=== PATIENT | male | born 1925 | race Caucasian/White ===

== ENCOUNTER 2016-07-03 14:28 | Inpatient (IN) | payer MEDICARE, BC ==
[2016-07-03] MEDS ORDERED: ACETAMINOPHEN 500 MG TABLET PO ONE (14:43)
[2016-07-03] MEDS ORDERED: 0.9 % SODIUM CHLORIDE 1000ML 1,000 ML IV SCH (14:45)
[2016-07-03] MEDS ORDERED: PIPERACILLIN SODIUM/TAZOBACTAM 4.5 GM in 0.9 % SODIUM CHLORIDE 100ML 100 ML IVPB ONE (14:47)
[2016-07-03] MEDS ORDERED: LEVOFLOXACIN/D5W 750 MG/150 ML BAG IVPB ONE (14:47)
--- NOTE | 2016-07-03 14:48 | Emergency Department Record ---
History of Present Illness - General Chief Complaint: Difficulty Breathing Stated Complaint: [place] Time Seen by Provider: 07/03/16 14:38 Source: EMS Mode of Arrival: EMS Limitations: No limitations - History of Present Illness Initial Comments: 89 yo male presents from [facility] for evaluation of fever and cough symptoms this afternoon. Patient has a history of dementia and cannot provide history on examination. MD Complaint: Shortness of breath Onset/Timin -: Days(s) - Related Data Home Oxygen Therapy: No Home Medications Medication Instructions Recorded Confirmed Last Taken Donepezil HCl [Aricept] 10 mg PO DAILY 04/10/14 07/03/16 07/02/16 Memantine HCl [Namenda Xr] 28 mg PO DAILY 04/10/14 07/03/16 07/02/16 Risperidone [Risperdal] 0.25 mg PO QHS 04/10/14 07/03/16 07/02/16 Lisinopril 10 mg PO DAILY 07/03/16 07/03/16 07/03/16 Previous Rx's Medication Instructions Recorded Atorvastatin Calcium [Lipitor] 40 mg PO QHS #90 tab 04/11/14 Enalapril Maleate [Vasotec] 10 mg PO DAILY #30 tablet 04/18/14 Allergies Allergy/AdvReac Type Severity Reaction Status Date / Time No Known Drug Allergies Allergy Verified 04/10/14 11:26 Review of Systems ROS unobtainable: Other (Dementia) Past Medical History - SOCIAL HISTORY Smoking Status: Former smoker - RESPIRATORY Hx Respiratory Disorders: No - CARDIOVASCULAR Hx Cardio Disorders: Yes Hx Abnormal EKG: Yes (open heart surgery son unsure f reason) - NEURO Hx Neuro Disorders: Yes Hx Dementia: Yes - GI Hx GI Disorders: No - Hx Genitourinary Disorders: No - ENDOCRINE Hx Endocrine Disorders: No - MUSCULOSKELETAL Hx Musculoskeletal Disorders: No - PSYCH Hx Psych Problems: Yes Hx Anxiety: Yes - HEMATOLOGY/ONCOLOGY Hx Hematology/Oncology Disorders: No Family Medical History Hx Dementia: Mother, Brother/Sister Physical Exam - General General Appearance: Alert, Other (Patient is AOx1 on examination, at baseline per EMS) Limitations: No limitations - Head Head exam: negative: Atraumatic, Normocephalic, Normal inspection Head exam detail: negative: Abrasion, Contusion, Lam's sign, General tenderness, Hematoma, Laceration - Eye Eye exam: Normal appearance. negative: Conjunctival injection, Periorbital swelling, Periorbital tenderness, Scleral icterus - ENT Ear exam: negative: Auricular hematoma, Auricular trauma Nasal Exam: negative: Active bleeding, Discharge, Dried blood, Foreign body Mouth exam: negative: Drooling, Laceration, Muffled voice, Tongue elevation - Neck Neck exam: Normal inspection. negative: Meningismus, Tenderness - Respiratory Respiratory exam: Decreased breath sounds, Respiratory distress. negative: Rales, Rhonchi, Stridor - Cardiovascular Cardiovascular Exam: Regular rate, Normal rhythm, Normal heart sounds - GI/Abdominal GI/Abdominal exam: Soft. negative: Rebound, Rigid, Tenderness - Rectal Rectal exam: Deferred - exam: Deferred - Extremities Extremities exam: Normal inspection. negative: Pedal edema, Tenderness - Back Back exam: Denies: CVA tenderness (R), CVA tenderness (L) - Neurological Neurological exam: Alert. negative: Motor sensory deficit - Psychiatric Psychiatric exam: Normal affect, Normal mood - Skin Skin exam: Normal color. negative: Abrasion Type of lesion: negative: abrasion Course - Reevaluation(s) Reevaluation #1: 07/03/16 15:57 Labs reviewed, Hgb 11.2, BUN 31 (at baseline), Creatinine 1.6 (at baseline). Labs are otherwise grossly unremarkable for an acute process. CXR: Cardiomegaly, calcified pleural plaque, lungs are clear on examination. Reevaluation #2: 07/03/16 16:01 UA pending at this time, case was discussed with Dian KWOK, will accept admission at this time. Orders placed for treatment for HCAP. Medical Decision Making - Lab Data Result diagrams: 07/03/16 14:54 07/03/16 14:54 Disposition Disposition: Admit Clinical Impression: HCAP (healthcare-associated pneumonia) Alzheimer disease Qualifiers: Alzheimer's disease onset: unspecified onset Dementia behavioral disturbance: without behavioral disturbance Qualified Code(s): G30.9 - Alzheimer's disease, unspecified; F02.80 - Dementia in other diseases classified elsewhere without behavioral disturbance Fever Qualifiers: Fever type: unspecified Qualified Code(s): R50.9 - Fever, unspecified Disposition: Still a Patient at [facility] Decision to Admit: Admit from ER Decision to Admit Date: 05/05/17 Decision to Admit Time: 16:02 Condition: (2) Stable Forms: Patient Portal Access Time of Disposition: 16:02
[2016-07-03 15:03] LABS: HEMOGLOBIN 11.2 gm/dl (14.0-18.0); MEAN CELL VOLUME 93.5 fl (81-97); MEAN CORPUSCULAR HGB CONC 31.1 g/dl (32-36); MEAN PLATELET VOLUME 10.8 fl (7.4-10.4); PLATELET COUNT 201 K/uL (130-400); RED BLOOD COUNT 3.85 M/uL (4.40-5.70); RED CELL DISTRIBUTION WIDTH 13.2 % (11.5-14.5); WHITE BLOOD COUNT W/O DIFF 8.6 K/uL (4.2-12.2)
[2016-07-03 15:38] LABS: LACTIC ACID 1.1 mmol/L (0.7-2.1)
[2016-07-03 15:40] LABS: ALB/GLOB RATIO 1.2 (1.1-1.8); ALBUMIN 3.5 gm/dL (3.5-5.0); BILIRUBIN,TOTAL 0.4 mg/dL (0.2-1.3); CREATININE 1.6 mg/dL (0.66-1.25); TOTAL PROTEIN 6.4 gm/dL (6.3-8.2)
[2016-07-03 16:18] LABS: URINE APPEARANCE CLEAR; URINE BILIRUBIN NEGATIVE (NEGATIVE); URINE BLOOD SMALL (NEGATIVE); URINE COLOR YELLOW; URINE GLUCOSE (UA) NEGATIVE (NEGATIVE); URINE KETONE NEGATIVE (NEGATIVE); URINE LEUKOCYTE ESTERASE NEGATIVE (NEGATIVE); URINE NITRITE NEGATIVE (NEGATIVE); URINE UROBILINOGEN 0.2 E.U./dL (0.20 - 1.00)
[2016-07-03 16:27] LABS: URINE EPITHELIAL CELLS NONE SEEN (FEW); URINE WBC NONE SEEN (0-2/hpf)
[2016-07-03 16:28] LABS: URINE BACTERIA NONE SEEN
[2016-07-03] MEDS ORDERED: PIPERACILLIN SODIUM/TAZOBACTAM 4.5 GM in 0.9 % SODIUM CHLORIDE 100ML 100 ML IVPB SCH (16:51)
[2016-07-03] MEDS ORDERED: 0.9 % SODIUM CHLORIDE 1000ML 1,000 ML IV PRN (16:51)
[2016-07-03] MEDS ORDERED: ACETAMINOPHEN 500 MG TABLET PO PRN (16:51)
[2016-07-03] MEDS: PIPERACILLIN SODIUM/TAZOBACTAM 3.375 GM in 0.9 % SODIUM CHLORIDE 100ML 100 ML IVPB SCH (21:09)
[2016-07-03] MEDS: ATORVASTATIN 20 MG TABLET PO SCH (21:41)
[2016-07-03] MEDS: RISPERIDONE 0.25 MG TABLET PO SCH (21:42)
[2016-07-04] MEDS: PIPERACILLIN SODIUM/TAZOBACTAM 3.375 GM in 0.9 % SODIUM CHLORIDE 100ML 100 ML IVPB SCH ×4 (04:19→22:38)
[2016-07-04 06:28] LABS: BASO % 0.2 % (0-6); EOS % 0.7 % (0-6); GRAN % 77.8 % (47-80); HEMATOCRIT 30.6 % (42.0-52.0); HEMOGLOBIN 9.5 gm/dl (14.0-18.0); MEAN CELL VOLUME 93.9 fl (81-97); MEAN CORPUSCULAR HEMOGLOBIN 29.1 pg (27-33); MEAN PLATELET VOLUME 10.8 fl (7.4-10.4); MONO % 12.3 % (0-9); PLATELET COUNT 165 K/uL (130-400); RED BLOOD COUNT 3.26 M/uL (4.40-5.70); RED CELL DISTRIBUTION WIDTH 13.4 % (11.5-14.5); WHITE BLOOD COUNT W/O DIFF 6.1 K/uL (4.2-12.2)
[2016-07-04 07:08] LABS: ALB/GLOB RATIO 1.1 (1.1-1.8); ALBUMIN 2.9 gm/dL (3.5-5.0); ANION GAP 9.9 (7-16); BILIRUBIN,TOTAL 0.37 mg/dL (0.2-1.3); CARBON DIOXIDE 22.1 mmol/L (22-30); CREATININE 1.7 mg/dL (0.66-1.25); TOTAL PROTEIN 5.6 gm/dL (6.3-8.2)
[2016-07-04] MEDS: MEMANTINE HCL 10 MG TABLET PO SCH ×2 (08:59→22:40)
[2016-07-04] MEDS: DONEPEZIL HCL 5 MG TABLET PO SCH (08:59)
[2016-07-04] MEDS: ENALAPRIL 5 MG TABLET PO SCH (09:00)
[2016-07-04] MEDS ORDERED: LISINOPRIL 10 MG TABLET PO SCH (10:00)
[2016-07-04] MEDS ORDERED: LEVOFLOXACIN/D5W 750 MG in DEXTROSE 1 BAG IVPB SCH (10:00)
[2016-07-04] MEDS ORDERED: ZINC OXIDE 28.35 GM TUBE TOP PRN (10:52)
[2016-07-04 15:37] LABS: INFLUENZA A NEGATIVE (NEGATIVE); INFLUENZA B NEGATIVE (NEGATIVE)
--- NOTE | 2016-07-04 16:58 | History & Physical ---
History of Present Illness - Date of Service Date of Service for History & Physical: 07/04/16 - History of Present Illness Admitting Diagnosis: HCAP. Fever. Dementia History of Present Illness: 89yo male with CC of cough and fever. Brought here from [facility] memory unit. He has a history of dementia, CAD with 2 vessel bypass, carotid artery stenosis, anxiety. Patient was brought here by EMS from [facility] assisted living facility [facility] for a 2 days history of cough and weakness. No family members present to give further information at that time. While in the ED, patient was noted to be febrile with temp of 102. He had cbc which showed a normal wbc count and stable anemia with hgb at 11.2 (similar to previous visits). Oxygen saturation was 91% on room air improved to 98% with 2L. His CXR showed significant cardiomegaly compared to previous study done in 2013. Did not show evidence of an infiltrate at that time. UA was negative for infection. CMP showed moderate renal insufficiency similar to previous visits and was otherwise unremarkable. blood cultures obtained. patient was started on levaquin and zosyn for possible early nosocomial pneumonia and admitted for further monitoring. 07/04/16- Patient is alert and sitting up in bed at time of exam. He knows his name but is not oriented to place or time. He is overall pleasant and cooperative but states "I don't know" when asked why he was brought in and if he has been having any cough. no family or caretakers at bedside today. Nursing reports that he requires 1 person assistance for ambulation to the bathroom. Noted wet sounding cough frequently throughout exam. Patient ate about 50% of both his breakfast and lunch. spoke with patient's niece Monty on the phone. She states her uncle lives with his at [facility] in the memory unit. Says his dementia has really progressed over the past year. She believes that he usually requires assistance with ADL' s. says he has become agitated in the past when from his and would really like to get him back to [facility] as soon as we think he is ready to go. She says [facility] told her he had been having some cough and was a little weaker than normal for the past 2 days but no increased confusion or agitation. pcp: [facility] Travel Screening - Travel/Exposure Within Last 30 Days Have you traveled within the last 30 days?: No - Travel/Exposure Within Last Year Have you traveled outside the [place] in the last year?: No - Additonal Travel Details Have you been exposed to anyone with a communicable illness?: No - Travel Symptoms Symptom Screening: None Review of Systems ROS unobtainable: Due to mental status Past Medical History - SOCIAL HISTORY Smoking Status: Former smoker Alcohol Use: None Drug Use: None - RESPIRATORY Hx Respiratory Disorders: No - CARDIOVASCULAR Hx Cardio Disorders: Yes Hx Abnormal EKG: Yes (open heart surgery son unsure f reason) - NEURO Hx Neuro Disorders: Yes Hx Dementia: Yes - GI Hx GI Disorders: No - Hx Genitourinary Disorders: No - ENDOCRINE Hx Endocrine Disorders: No - MUSCULOSKELETAL Hx Musculoskeletal Disorders: No - PSYCH Hx Psych Problems: Yes Hx Anxiety: Yes Comment:: dementia - HEMATOLOGY/ONCOLOGY Hx Hematology/Oncology Disorders: No Family Medical History Any Significant Family History?: Yes Hx Dementia: Mother, Brother/Sister H&P Meds/Allergies - Allergies Allergies: Allergies Allergy/AdvReac Type Severity Reaction Status Date / Time No Known Drug Allergies Allergy Verified 04/10/14 11:26 - Home Medications Home Medications Medication Instructions Recorded Confirmed Last Taken Donepezil HCl [Aricept] 10 mg PO DAILY 04/10/14 07/03/16 07/02/16 Memantine HCl [Namenda Xr] 28 mg PO DAILY 04/10/14 07/03/16 07/02/16 Risperidone [Risperdal] 0.25 mg PO QHS 04/10/14 07/03/16 07/02/16 Lisinopril 10 mg PO DAILY 07/03/16 07/03/16 07/03/16 Previous Rx's Medication Instructions Recorded Atorvastatin Calcium [Lipitor] 40 mg PO QHS #90 tab 04/11/14 Enalapril Maleate [Vasotec] 10 mg PO DAILY #30 tablet 04/18/14 - Active Medications Active Medications: Current Medications Acetaminophen (Tylenol 500mg Tab) 1,000 mg PO Q6H PRN PRN Reason: PAIN/TEMP Last Admin: 07/04/16 00:17 Dose: 1,000 mg Atorvastatin Calcium (Lipitor) 40 mg PO QHS [facility] Last Admin: 07/03/16 21:41 Dose: 40 mg Donepezil HCl (Aricept) 10 mg PO DAILY [facility] Last Admin: 07/04/16 08:59 Dose: 10 mg Enalapril Maleate (Vasotec) 10 mg PO DAILY [facility] Last Admin: 07/04/16 09:00 Dose: 10 mg Sodium Chloride () 1,000 mls @ 125 mls/hr IV .Q8H PRN PRN Reason: LARGE VOLUME IV Last Admin: 07/03/16 18:06 Dose: 125 mls/hr Levofloxacin/Dextrose (Levaquin 750mg Ivpb) 750 mg in 150 mls @ 125 mls/hr IVPB Q48H [facility] Stop: 07/10/16 14:01 Piperacillin Sod/Tazobactam (Sod 3.375 gm/ Sodium Chloride) 100 mls @ 33.333 mls/hr IVPB Q6H [facility] Last Admin: 07/04/16 16:44 Dose: 33.333 mls/hr Memantine (Namenda) 10 mg PO BID [facility] Last Admin: 07/04/16 08:59 Dose: 10 mg Risperidone (Risperdal) 0.25 mg PO QHS [facility] Last Admin: 07/03/16 21:42 Dose: 0.25 mg Zinc Oxide (Desitin) 28.35 gm TOP ASDIR PRN PRN Reason: RASH Physical Exam - Vital Signs Vital Signs: Vital Signs - Last 24 Hrs Temp Pulse Resp BP Pulse Ox 07/04/16 12:00 98.8 F 72 18 139/86 94 L 07/04/16 09:00 86 14 07/04/16 07:12 99.1 F 72 18 139/85 93 L 07/04/16 04:00 98.8 F 77 18 145/68 96 07/04/16 00:00 100.9 F H 83 20 163/69 93 L 07/03/16 21:00 80 12 07/03/16 20:00 100.0 F H 79 18 118/60 94 L 07/03/16 17:24 24 - General General Appearance: Alert, Cooperative, No acute distress, Other (Patient is AOx1 on examination) Limitations: No limitations - Head Head exam: negative: Atraumatic, Normocephalic, Normal inspection Head exam detail: negative: Abrasion, Contusion, Lam's sign, General tenderness, Hematoma, Laceration - Eye Eye exam: Normal appearance. negative: Conjunctival injection, Periorbital swelling, Periorbital tenderness, Scleral icterus - ENT Ear exam: negative: Auricular hematoma, Auricular trauma Nasal Exam: negative: Active bleeding, Discharge, Dried blood, Foreign body Mouth exam: negative: Drooling, Laceration, Muffled voice, Tongue elevation - Neck Neck exam: Normal inspection. negative: Meningismus, Tenderness - Respiratory Respiratory exam: Rales (crackles in bilateral bases). negative: Rhonchi, Stridor - Cardiovascular Cardiovascular Exam: Regular rate, Normal rhythm, Normal heart sounds - GI/Abdominal GI/Abdominal exam: Soft. negative: Rebound, Rigid, Tenderness - Rectal Rectal exam: Deferred - exam: Deferred - Extremities Extremities exam: Normal inspection. negative: Pedal edema, Tenderness - Back Back exam: Denies: CVA tenderness (R), CVA tenderness (L) - Neurological Neurological exam: Alert. negative: Motor sensory deficit - Psychiatric Psychiatric exam: Normal affect, Normal mood - Skin Skin exam: Normal color. negative: Abrasion Type of lesion: negative: abrasion Results - Labs Result Diagrams: 07/04/16 05:28 07/04/16 05:28 Labs Last 24 Hours: Laboratory Results - last 24 hr 07/04/16 07/04/16 07/04/16 05:28 05:28 15:10 WBC 6.1 RBC 3.26 L Hgb 9.5 L Hct 30.6 L MCV 93.9 MCH 29.1 MCHC 31.0 L RDW 13.4 Plt Count 165 MPV 10.8 H Gran % 77.8 Lymphocytes % 9.0 L Monocytes % 12.3 H Eosinophils % 0.7 Basophils % 0.2 Sodium 139 Potassium 4.2 Chloride 107 Carbon Dioxide 22.1 Anion Gap 9.9 BUN 32 H Creatinine 1.7 H Estimated GFR 41 Random Glucose 87 Calcium 8.2 L Total Bilirubin 0.37 AST 33 ALT 28 Alkaline Phosphatase 81 Total Protein 5.6 L Albumin 2.9 L Globulin 2.7 Albumin/Globulin Ratio 1.1 Influenza Type A Ag Negative Influenza Type B Ag Negative - Imaging and Cardiology Chest x-ray Status: Report reviewed (cardiomegaly) VTE H&P Assessment - Risk for VTE Risk for VTE: Yes Risk Level: High Risk Assessment Date: 07/04/16 Risk Assessment Time: 17:26 VTE Orders Placed or Will Be Placed: Yes Plan - Inpatient Certification Inpatient Certification: Admit to inpatient care: Based on my medical assessment, after consideration of patient's risk factors (age, co-morbidities and patient presenting symptoms and acuity), I expect that this patient will remain in the hospital greater than or equal to two midnights and that the services needed warrant inpatient care because: Patient Risk Factors: [age, fever, dementia, weakness] Estimated length of stay: [48-96H] The patient may reasonably be expected to be discharged or transferred to a hospital within 96 hours after admission to [facility]. Services needed: [IV antibiotics, ] Post hospital care (if known): [] I certify that my determination is in accordance with my understanding of Medicare requirements for reasonable and necessary inpatient services. 07/04/16 17:26 - Detailed Diagnosis and Plan (1) Fever Current Visit: Yes Status: Acute Qualifiers: Fever type: unspecified Qualified Code(s): R50.9 - Fever, unspecified Base Code: R50.9 - FEVER, UNSPECIFIED Comment: 07/03/16- improved following administration of IV antibiotics. Tmax of 102. WBc count wnl. Blood cultures pending. UA negative for infection. CXR showed cardiomegaly but no acute infiltrates. MLC is infection with h/o of coughing past 2 days. cough is wet sounding but not productive of sputum. -RSV and influenza panel ordered to eval for viral causes -continue empiric treatment for possible early nosocomial pneumonia with levaquin and zosyn renally dosed -continue vitals q8H -repeat labs qam (2) Cough Current Visit: Yes Status: Acute Base Code: R05 - COUGH Comment: 07/03/16- CXR showed cardiomegaly increased since 2013. patient has bibasilar crackles on exam. no pedal edema. possibly infectious vs fluid overload? oxygen saturation remains stable around 94-95% on room air. -will continue IV antibiotics but will consider trial of lasix if no improvement. prefer to avoid diuretics if possible with stage 3 ckd. -rsv and flu panel ordered (3) DNR (do not resuscitate) Current Visit: Yes Status: Acute Base Code: Z66 - DO NOT RESUSCITATE Comment: 07/03/16- patient is dnr (4) DVT prophylaxis Current Visit: Yes Status: Acute Base Code: [id number] - Comment: 07/03/16- patient is high risk for DVT with age and restricted mobility -lovenox 30mg sq daily for renal function
[2016-07-04] MEDS ORDERED: LORAZEPAM 2 MG/ML VIAL IV PRN (17:48)
[2016-07-04] MEDS: RISPERIDONE 0.25 MG TABLET PO SCH (22:39)
[2016-07-04] MEDS: ATORVASTATIN 20 MG TABLET PO SCH (22:40)
[2016-07-05] MEDS: PIPERACILLIN SODIUM/TAZOBACTAM 3.375 GM in 0.9 % SODIUM CHLORIDE 100ML 100 ML IVPB SCH ×2 (04:14→10:23)
[2016-07-05 06:45] LABS: ALBUMIN 2.8 gm/dL (3.5-5.0); ANION GAP 6.3 (7-16); BILIRUBIN,TOTAL 0.34 mg/dL (0.2-1.3); CARBON DIOXIDE 23.7 mmol/L (22-30); CREATININE 1.7 mg/dL (0.66-1.25); TOTAL PROTEIN 5.7 gm/dL (6.3-8.2)
[2016-07-05 06:57] LABS: HEMATOCRIT 29.6 % (42.0-52.0); MEAN CELL VOLUME 95.2 fl (81-97); MEAN CORPUSCULAR HEMOGLOBIN 28.9 pg (27-33); MEAN CORPUSCULAR HGB CONC 30.4 g/dl (32-36); RED BLOOD COUNT 3.11 M/uL (4.40-5.70); WHITE BLOOD COUNT W/O DIFF 4.6 K/uL (4.2-12.2)
[2016-07-05 06:58] LABS: HYPOCHROMIA 1+; MEAN PLATELET VOLUME 10.7 fl (7.4-10.4); PLATELET COUNT 151 K/uL (130-400); PLATELET ESTIMATE NORMAL (NORMAL); RED CELL DISTRIBUTION WIDTH 13.6 % (11.5-14.5)
--- NOTE | 2016-07-05 09:25 | Physician Progress Note ---
Subjective - Date Date of Physician Progress Note: 07/05/16 - Subjective Subjective Comment: Patient is resting comfortably in his chair eating lunch. His son is at bedside. Says he was given an update from [facility] that they had brought him over to [facility] ED for cough and fever. patient's son states he hasn't heard his dad cough much since he's been here. Says he seems to be at baseline. Son is very worried about getting him back to [facility] [place] because Ayo's also lives at [facility] in the memory unit and gets agitated when they are . Objective - Vital Signs Vital Signs: Vital Signs - Last 24 Hrs Temp Pulse Resp BP Pulse Ox 07/05/16 08:00 98.8 F 74 18 167/79 93 L 07/05/16 00:00 98.8 F 62 18 158/74 94 L 07/04/16 20:13 12 07/04/16 20:00 99.2 F 98 H 18 182/78 95 07/04/16 12:00 98.8 F 72 18 139/86 94 L - General General Appearance: Alert, Cooperative, No acute distress, Other (Patient is AOx1 on examination) Limitations: No limitations - Head Head exam: negative: Atraumatic, Normocephalic, Normal inspection Head exam detail: negative: Abrasion, Contusion, Lam's sign, General tenderness, Hematoma, Laceration - Eye Eye exam: Normal appearance. negative: Conjunctival injection, Periorbital swelling, Periorbital tenderness, Scleral icterus - ENT Ear exam: negative: Auricular hematoma, Auricular trauma Nasal Exam: negative: Active bleeding, Discharge, Dried blood, Foreign body Mouth exam: negative: Drooling, Laceration, Muffled voice, Tongue elevation - Neck Neck exam: Normal inspection. negative: Meningismus, Tenderness - Respiratory Respiratory exam: Rales (crackles in bilateral bases). negative: Rhonchi, Stridor - Cardiovascular Cardiovascular Exam: Regular rate, Normal rhythm, Normal heart sounds - GI/Abdominal GI/Abdominal exam: Soft. negative: Rebound, Rigid, Tenderness - Rectal Rectal exam: Deferred - exam: Deferred - Extremities Extremities exam: Normal inspection. negative: Pedal edema, Tenderness - Back Back exam: Denies: CVA tenderness (R), CVA tenderness (L) - Neurological Neurological exam: Alert. negative: Motor sensory deficit - Psychiatric Psychiatric exam: Normal affect, Normal mood - Skin Skin exam: Normal color. negative: Abrasion Type of lesion: negative: abrasion Assessment and Plan - Assessment and Plan (1) Fever Current Visit: Yes Status: Acute Qualifiers: Fever type: unspecified Qualified Code(s): R50.9 - Fever, unspecified Base Code: R50.9 - FEVER, UNSPECIFIED Comment: 07/05/16- resolved following administration of IV antibiotics. Tmax of 102 while in ED and has been afebrile sincec. WBc count remains wnl. Blood cultures pending. UA negative for infection. CXR showed cardiomegaly but no acute infiltrates. MLC is infection. Oxygen saturation remains 96% on room air and no increased work of breathing. -RSV and influenza panel ordered to eval for viral causes. rapid flu negative. -continue empiric treatment for possible early nosocomial pneumonia with levaquin and zosyn renally dosed -order BNP with cardiomegaly and h/o CAD for possible new onset CHF. Will get echo if elevated and do trial of low dose lasix -continue vitals q8H -repeat labs qam (2) Cough Current Visit: Yes Status: Acute Base Code: R05 - COUGH Comment: 07/05/16- CXR showed cardiomegaly increased since 2012. patient has bibasilar crackles on exam. no pedal edema. possibly infectious vs fluid overload? oxygen saturation remains stable around 94-95% on room air. -will continue IV antibiotics but will consider trial of lasix if no improvement. prefer to avoid diuretics if possible with stage 3 ckd. -rsv and flu panel ordered (3) DNR (do not resuscitate) Current Visit: Yes Status: Acute Base Code: Z66 - DO NOT RESUSCITATE Comment: 07/05/16- patient is dnr (4) DVT prophylaxis Current Visit: Yes Status: Acute Base Code: [id number] - Comment: 07/05/16- patient is high risk for DVT with age and restricted mobility -lovenox 30mg sq daily for renal function Results - Labs Result Diagrams: 07/05/16 05:50 07/05/16 05:40 Labs Last 24 Hours: Laboratory Results - last 24 hr 07/04/16 07/05/16 07/05/16 15:10 05:40 05:50 WBC 4.6 RBC 3.11 L Hgb 9.0 L Hct 29.6 L MCV 95.2 MCH 28.9 MCHC 30.4 L RDW 13.6 Plt Count 151 MPV 10.7 H Neutrophils % Lymphocytes % Monocytes % Eosinophils % Not Reportable Basophils % Not Reportable Platelet Estimate Hypochromasia Sodium 140 Potassium 4.0 Chloride 110 H Carbon Dioxide 23.7 Anion Gap 6.3 L BUN 30 H Creatinine 1.7 H Estimated GFR 41 Random Glucose 85 Calcium 8.1 L Total Bilirubin 0.34 AST 33 ALT 30 Alkaline Phosphatase 69 Total Protein 5.7 L Albumin 2.8 L Globulin 2.9 Albumin/Globulin Ratio 1.0 L Influenza Type A Ag Negative Influenza Type B Ag Negative 07/05/16 05:50 WBC 4.6 RBC 3.11 L Hgb 9.0 L Hct 29.6 L MCV 95.2 MCH 28.9 MCHC 30.4 L RDW 13.6 Plt Count 151 MPV 10.7 H Neutrophils % 68.0 Lymphocytes % 18.0 Monocytes % 12.0 H Eosinophils % 2.0 Basophils % Not Reportable Platelet Estimate Normal Hypochromasia 1+ Sodium Potassium Chloride Carbon Dioxide Anion Gap BUN Creatinine Estimated GFR Random Glucose Calcium Total Bilirubin AST ALT Alkaline Phosphatase Total Protein Albumin Globulin Albumin/Globulin Ratio Influenza Type A Ag Influenza Type B Ag DVT/PE Assessment - Risk for VTE Risk for VTE: No Risk Level: High Risk Assessment Date: 07/04/16 Risk Assessment Time: 17:26 VTE Orders Placed or Will Be Placed: Yes - Active Medicaitons Current Medications: Current Medications Acetaminophen (Tylenol 500mg Tab) 1,000 mg PO Q6H PRN PRN Reason: PAIN/TEMP Last Admin: 07/04/16 00:17 Dose: 1,000 mg Atorvastatin Calcium (Lipitor) 40 mg PO QHS [facility] Last Admin: 07/04/16 22:40 Dose: 40 mg Donepezil HCl (Aricept) 10 mg PO DAILY [facility] Last Admin: 07/04/16 08:59 Dose: 10 mg Enalapril Maleate (Vasotec) 10 mg PO DAILY [facility] Last Admin: 07/04/16 09:00 Dose: 10 mg Enoxaparin Sodium (Lovenox) 30 mg SQ DAILY [facility] Levofloxacin/Dextrose (Levaquin 750mg Ivpb) 750 mg in 150 mls @ 125 mls/hr IVPB Q48H [facility] Stop: 07/10/16 14:01 Piperacillin Sod/Tazobactam (Sod 3.375 gm/ Sodium Chloride) 100 mls @ 33.333 mls/hr IVPB Q6H [facility] Last Admin: 07/05/16 04:14 Dose: 33.333 mls/hr Lorazepam (Ativan) 1 mg IV Q8H PRN PRN Reason: Agitation Memantine (Namenda) 10 mg PO BID [facility] Last Admin: 07/04/16 22:40 Dose: 10 mg Risperidone (Risperdal) 0.25 mg PO QHS [facility] Last Admin: 07/04/16 22:39 Dose: 0.25 mg Zinc Oxide (Desitin) 28.35 gm TOP ASDIR PRN PRN Reason: RASH AMI Plan - Labs Result Diagrams: 07/05/16 05:50 07/05/16 05:40
[2016-07-05] MEDS: ENALAPRIL 5 MG TABLET PO SCH ×2 (10:26→22:47)
[2016-07-05] MEDS: MEMANTINE HCL 10 MG TABLET PO SCH ×2 (10:26→22:09)
[2016-07-05] MEDS: DONEPEZIL HCL 5 MG TABLET PO SCH (10:26)
[2016-07-05] MEDS: ENOXAPARIN 30 MG/0.3 ML SYR SQ SCH (10:26)
[2016-07-05] MEDS ORDERED: LEVOFLOXACIN/D5W 750 MG/150 ML BAG IVPB SCH (14:00)
[2016-07-05] MEDS: LEVOFLOXACIN 500 MG TABLET PO SCH (20:00)
[2016-07-05] MEDS ORDERED: FUROSEMIDE 20 MG TABLET PO ONE (21:56)
[2016-07-05] MEDS: ATORVASTATIN 20 MG TABLET PO SCH (22:09)
[2016-07-05] MEDS: RISPERIDONE 0.25 MG TABLET PO SCH (22:10)
[2016-07-06 06:41] LABS: BASO % 0.1 % (0-6); EOS % 0.9 % (0-6); GRAN % 73.8 % (47-80); HEMATOCRIT 31.8 % (42.0-52.0); HEMOGLOBIN 9.6 gm/dl (14.0-18.0); MEAN CELL VOLUME 95.5 fl (81-97); MEAN CORPUSCULAR HEMOGLOBIN 28.8 pg (27-33); MEAN CORPUSCULAR HGB CONC 30.2 g/dl (32-36); MEAN PLATELET VOLUME 10.7 fl (7.4-10.4); MONO % 9.2 % (0-9); PLATELET COUNT 157 K/uL (130-400); RED BLOOD COUNT 3.33 M/uL (4.40-5.70); RED CELL DISTRIBUTION WIDTH 13.7 % (11.5-14.5); WHITE BLOOD COUNT W/O DIFF 7.7 K/uL (4.2-12.2)
[2016-07-06 06:54] LABS: ALB/GLOB RATIO 0.9 (1.1-1.8); ALBUMIN 2.9 gm/dL (3.5-5.0); ANION GAP 6.4 (7-16); BILIRUBIN,TOTAL 0.31 mg/dL (0.2-1.3); CARBON DIOXIDE 25.6 mmol/L (22-30); CREATININE 1.5 mg/dL (0.66-1.25)
--- NOTE | 2016-07-06 07:17 | RADIOLOGY REPORT ---
EXAM: CHEST, TWO VIEWS HISTORY: DIFFICULTY BREATHING. TECHNIQUE: Frontal and lateral views of the chest were obtained. Comparison: 05/31/14 chest. FINDINGS: Stable cardiomegaly and post surgical change. Calcified pleural plaque formation bilaterally. Surgical clips in the neck regions. Osteopenia. The lungs are clear. No pneumothorax. IMPRESSION: STABLE CARDIOMEGALY. POST SURGICAL CHANGES. CALCIFIED PLEURAL PLAQUE FORMATION. JOB NUMBER: [id number] MTDD
--- NOTE | 2016-07-06 07:20 | RADIOLOGY REPORT ---
EXAM: CHEST, TWO VIEWS HISTORY: COUGH AND FEVER. TECHNIQUE: PA and lateral upright views of the chest were obtained. Comparison: 07/03/16 and 05/31/14. FINDINGS: The patient is status post median sternotomy. The heart is normal in size. There is calcification of the aorta. The mediastinum and pulmonary vasculature are normal. Calcified pleural plaques are present within both hemithoraces and are not significantly different. There are no acute infiltrates or effusions. There is no pneumothorax. The bones appear intact. IMPRESSION: 1. NO ACUTE CHEST PATHOLOGY. 2. STABLE POST SURGICAL CHANGES AND CALCIFIED PLEURAL PLAQUES WITHIN BOTH HEMITHORACES. JOB NUMBER: [id number] MTDD
--- NOTE | 2016-07-06 08:14 | Discharge Summary ---
Providers Discharge Summary Date: 07/06/16 Date of admission: 07/03/16 16:49 Expected Date of Discharge: 07/06/16 Attending physician: MARIA DE JESUS GLYNN Primary care physician: Samy Mcneil Physical Exam - Vital Signs Vital Signs: Vital Signs - Last 24 Hrs Temp Pulse Resp BP BP Pulse Ox 07/06/16 04:09 98.5 F 79 20 150/73 95 07/06/16 00:11 98.5 F 74 20 143/70 95 07/05/16 20:51 98.5 F 79 18 190/82 199/83 96 07/05/16 18:34 98.2 F 76 18 189/83 96 07/05/16 16:00 98.2 F 72 18 201/80 96 07/05/16 12:00 98.6 F 57 L 16 187/86 96 07/05/16 09:00 74 18 - General General Appearance: Alert, Cooperative, No acute distress, Other (Patient is AOx1 on examination) Limitations: No limitations - Head Head exam: negative: Atraumatic, Normocephalic, Normal inspection Head exam detail: negative: Abrasion, Contusion, Lam's sign, General tenderness, Hematoma, Laceration - Eye Eye exam: Normal appearance. negative: Conjunctival injection, Periorbital swelling, Periorbital tenderness, Scleral icterus - ENT Ear exam: negative: Auricular hematoma, Auricular trauma Nasal Exam: negative: Active bleeding, Discharge, Dried blood, Foreign body Mouth exam: negative: Drooling, Laceration, Muffled voice, Tongue elevation - Neck Neck exam: Normal inspection. negative: Meningismus, Tenderness - Respiratory Respiratory exam: Rales (crackles; clear with cough). negative: Rhonchi, Stridor - Cardiovascular Cardiovascular Exam: Regular rate, Normal rhythm, Normal heart sounds - GI/Abdominal GI/Abdominal exam: Soft. negative: Rebound, Rigid, Tenderness - Rectal Rectal exam: Deferred - exam: Deferred - Extremities Extremities exam: Normal inspection. negative: Pedal edema, Tenderness - Back Back exam: Denies: CVA tenderness (R), CVA tenderness (L) - Neurological Neurological exam: Alert. negative: Motor sensory deficit - Psychiatric Psychiatric exam: Normal affect, Normal mood - Skin Skin exam: Normal color. negative: Abrasion Type of lesion: negative: abrasion Hospitalization - Hospitalization Admission Diagnosis: HCAP. Fever. Dementia - Problem List/Discharge Diagnosis (1) Fever Current Visit: Yes Status: Acute Discharge Diagnosis: Fever type: unspecified Qualified Code(s): R50.9 - Fever, unspecified Base Code: R50.9 - FEVER, UNSPECIFIED Comment: 07/06/16- resolved following administration of IV antibiotics. Tmax of 102 while in ED and has been afebrile since. WBc count remains wnl. Blood cultures still pending. UA negative for infection. CXR showed cardiomegaly but no acute infiltrates. Repeat CXR continues to show no acute process. Oxygen saturation remains 96% on room air and no increased work of breathing. -RSV and influenza panel pending to eval for viral causes. rapid flu negative. -plan to discharge back to [facility] today. Will finish course of Levaquin, renally dosed. 3 more doses of 750mg po q48H. -BNP up at 2130 but could also be 2/2 CKD. repeat CXR did not show evidence of fluid overload and no clinical signs of overload on exam. -follow up [facility] pcp Dr. Mcneil at [facility] this week if possible (2) Cough Current Visit: Yes Status: Acute Base Code: R05 - COUGH Comment: 07/06/16- CXR showed cardiomegaly increased since 2012. patient has bibasilar crackles on exam. no pedal edema. repeat CXR continues to show no acute process or interstitial edema/effusion. oxygen saturation remains stable around 94-95% on room air. -finish course of levaquin as described above (3) DNR (do not resuscitate) Current Visit: Yes Status: Acute Base Code: Z66 - DO NOT RESUSCITATE Comment: 07/06/16- patient is dnr (4) DVT prophylaxis Current Visit: Yes Status: Acute Base Code: [id number] - Comment: 07/06/16- patient was high risk for DVT with age and restricted mobility -lovenox 30mg sq daily for renal function - Hospitalization Course Disposition: Long-Term Care Facility Hospital Course: 89yo male with CC of cough and fever. Brought here from [facility] memory unit. He has a history of dementia, CAD with 2 vessel bypass, carotid artery stenosis, anxiety. Patient was brought here by EMS from [facility] assisted living facility [facility] for a 2 days history of cough and weakness. No family members present to give further information at that time. While in the ED, patient was noted to be febrile with temp of 102. He had cbc which showed a normal wbc count and stable anemia with hgb at 11.2 (similar to previous visits). Oxygen saturation was 91% on room air improved to 98% with 2L. His CXR showed significant cardiomegaly compared to previous study done in 2013. Did not show evidence of an infiltrate at that time. UA was negative for infection. CMP showed moderate renal insufficiency similar to previous visits and was otherwise unremarkable. blood cultures obtained. patient was started on levaquin and zosyn for possible early nosocomial pneumonia and admitted for further monitoring. 07/04/16- Patient is alert and sitting up in bed at time of exam. He knows his name but is not oriented to place or time. He is overall pleasant and cooperative but states "I don't know" when asked why he was brought in and if he has been having any cough. no family or caretakers at bedside today. Nursing reports that he requires 1 person assistance for ambulation to the bathroom. Noted wet sounding cough frequently throughout exam. Patient ate about 50% of both his breakfast and lunch. spoke with patient's niece Monty on the phone. She states her uncle lives with his at [facility] in the memory unit. Says his dementia has really progressed over the past year. She believes that he usually requires assistance with ADL' s. says he has become agitated in the past when from his and would really like to get him back to [facility] as soon as we think he is ready to go. She says [facility] told her he had been having some cough and was a little weaker than normal for the past 2 days but no increased confusion or agitation. 07-05-16- Patient is resting comfortably in his chair eating lunch. His son is at bedside. Says he was given an update from [facility] that they had brought him over to [facility] ED for cough and fever. patient's son states he hasn't heard his dad cough much since he's been here. Says he seems to be at baseline. Son is very worried about getting him back to [facility] [place] because Ayo's also lives at [facility] in the memory unit and gets agitated when they are . 07/06/16- patient up in bed. Says he is feeling well today. he denies fatigue, cough or shortness of breath. His son, Stef, is present and states his father is at baseline. Procedures: Imaging and X-Rays 07/05/16 13:33 CXR [CHEST 2 VIEWS] [RAD] Stat Abnormal Labs: Abnormal Lab Results 07/04/16 07/04/16 07/05/16 Range/Units 05:28 05:28 05:40 RBC 3.26 L (4.40-5.70) M/uL Hgb 9.5 L (14.0-18.0) gm/dl Hct 30.6 L (42.0-52.0) % MCHC 31.0 L (32-36) g/dl MPV 10.8 H (7.4-10.4) fl Lymphocytes % 9.0 L (16-45) % Monocytes % 12.3 H (0-9) % Chloride 110 H (98-107) mmol/L Anion Gap 6.3 L (7-16) BUN 32 H 30 H (9-20) mg/dL Creatinine 1.7 H 1.7 H (0.66-1.25) mg/dL Calcium 8.2 L 8.1 L (8.5-10.1) mg/dL NT-Pro-B Natriuret Pep (<450) pg/mL Total Protein 5.6 L 5.7 L (6.3-8.2) gm/dL Albumin 2.9 L 2.8 L (3.5-5.0) gm/dL Albumin/Globulin Ratio 1.0 L (1.1-1.8) 07/05/16 07/05/16 07/05/16 Range/Units 05:40 05:50 05:50 RBC 3.11 L 3.11 L (4.40-5.70) M/uL Hgb 9.0 L 9.0 L (14.0-18.0) gm/dl Hct 29.6 L 29.6 L (42.0-52.0) % MCHC 30.4 L 30.4 L (32-36) g/dl MPV 10.7 H 10.7 H (7.4-10.4) fl Lymphocytes % (16-45) % Monocytes % 12.0 H (0-9) % Chloride (98-107) mmol/L Anion Gap (7-16) BUN (9-20) mg/dL Creatinine (0.66-1.25) mg/dL Calcium (8.5-10.1) mg/dL NT-Pro-B Natriuret Pep 2130.00 H (<450) pg/mL Total Protein (6.3-8.2) gm/dL Albumin (3.5-5.0) gm/dL Albumin/Globulin Ratio (1.1-1.8) 07/06/16 07/06/16 Range/Units 06:10 06:10 RBC 3.33 L (4.40-5.70) M/uL Hgb 9.6 L (14.0-18.0) gm/dl Hct 31.8 L (42.0-52.0) % MCHC 30.2 L (32-36) g/dl MPV 10.7 H (7.4-10.4) fl Lymphocytes % (16-45) % Monocytes % 9.2 H (0-9) % Chloride 112 H (98-107) mmol/L Anion Gap 6.4 L (7-16) BUN 28 H (9-20) mg/dL Creatinine 1.5 H (0.66-1.25) mg/dL Calcium 8.3 L (8.5-10.1) mg/dL NT-Pro-B Natriuret Pep (<450) pg/mL Total Protein 6.0 L (6.3-8.2) gm/dL Albumin 2.9 L (3.5-5.0) gm/dL Albumin/Globulin Ratio 0.9 L (1.1-1.8) Condition at Discharge: (2) Stable Discharge Medications - Discharge Medications Prescriptions: Levofloxacin [Levaquin] 750 mg PO Q48H #3 tab Home Medications: Ambulatory Orders Donepezil HCl [Aricept] 10 mg PO DAILY 04/10/14 [Last Taken 07/02/16] Memantine HCl [Namenda Xr] 28 mg PO DAILY 04/10/14 [Last Taken 07/02/16] Risperidone [Risperdal] 0.25 mg PO QHS 04/10/14 [Last Taken 07/02/16] Atorvastatin Calcium [Lipitor] 40 mg PO QHS #90 tab 04/11/14 [Last Taken ] Enalapril Maleate [Vasotec] 10 mg PO BID 07/06/16 [Last Taken Unknown] Levofloxacin [Levaquin] 750 mg PO Q48H #3 tab 07/06/16 [Last Taken Unknown] Discharge Plan - Discharge Instructions Activity at Discharge: Resume Usual Activities As Tolerated Diet at Discharge: Regular Diet Additional Instructions: Please make follow up with Dr. Mcneil in the next 5-7 days Continue levaquin 750mg by mouth every 48 hours. Next dose is due tomorrow () evening resume enalapril 10mg twice daily. Return to ED for any new or worsening symptoms
[2016-07-06] MEDS: ENOXAPARIN 30 MG/0.3 ML SYR SQ SCH (09:40)
[2016-07-06] MEDS: DONEPEZIL HCL 5 MG TABLET PO SCH (09:40)
[2016-07-06] MEDS: MEMANTINE HCL 10 MG TABLET PO SCH (09:40)
[2016-07-06] MEDS: ENALAPRIL 5 MG TABLET PO SCH (09:41)
[2016-07-06] MEDS: LEVOFLOXACIN 500 MG TABLET PO SCH (12:37)
[2016-07-07] MEDS ORDERED: LEVOFLOXACIN 500 MG TABLET PO SCH (10:00)
== END 2016-07-06 14:15 | DRG 195 ==
LOC: ER 14:28 → MEDSURG 16:49
PROVIDERS: ADMIT Family Medicine; ATTEND Family Medicine
DX: J18.9 Pneumonia, unspecified organism (principal); F03.90 Unspecified dementia, unspecified severity, without behavioral disturbance, psychotic disturbance, mood disturbance, and anxiety; Z95.1 Presence of aortocoronary bypass graft; N28.9 Disorder of kidney and ureter, unspecified; R05 Cough; Z66 Do not resuscitate
CPT/HCPCS: 99285 ×2; 96365; 96366; 83605; 85025; 80053; 81001; 71020; J1956; 83880; 85027; 87400; 99223; 99233; 99239; J1650; J2543; J7030